=== PATIENT | female | born 1960 | race American Indian/Alaskan Native ===

== ENCOUNTER 2021-12-12 01:06 | Emergency (ER) | payer MEDICARE ==
[2021-12-12] MEDS ORDERED: FUROSEMIDE 40 MG/4 ML INJ IV ONE (02:19)
[2021-12-12] MEDS ORDERED: ALBUTEROL 2.5 MG/3 ML NEBU IH ONE (02:19)
[2021-12-12] MEDS ORDERED: IPRATROPIUM 0.02% NEBU 2.5 ML IH ONE (02:19)
[2021-12-12] MEDS ORDERED: methylPREDNISolone Sod Succinate 125 MG/2 ML INJ IV ONE (02:19)
--- NOTE | 2021-12-12 02:22 | Emergency Department Report ---
ED General Adult HPI - General Chief complaint: Dyspnea/Respdistress Stated complaint: SOB PUI?: No Time Seen by Provider: 12/12/21 01:58 Source: patient, family, EMS ( EMS documentation not available at time of chart dictation ), RN notes reviewed, old records reviewed Mode of arrival: Stretcher Limitations: No Limitations - History of Present Illness Initial comments: The patient was evaluated in the emergency department for symptoms described in the history of present illness. He/she was evaluated in the context of the [facility] COVID-19 pandemic, which necessitated consideration that the patient might be at risk for infection with the virus that causes COVID-19. Institutional protocols and algorithms that pertain to the evaluation of patients at risk for COVID-19 are in a state of rapid change based on information released by regulatory bodies including the CDC and federal and state organizations. These policies and algorithms were followed during the patient's care in the emergency department. Please note that these policies, procedures and recommendations changed on a rapid basis. This is a pleasant and cooperative 61-year-old female, with a history of chronic respiratory failure on home oxygen, typically uses 5 to 6 L, and typically sats 88%, also with a history of paroxysmal A. fib, currently on xarelto, body mass index of 56, report of congestive heart failure, does not know ejection fraction, currently taking torsemide, 20 mg daily, presenting to the department today with a complaint of mild shortness of breath which is painless. The patient is seeking assurance that "she does not have water on the lungs." Patient endorses compliance with her medications. She denies travel, surgery, immobilization. The patient denies DVT and pulmonary embolism risk factors. The patient typically uses a wheelchair or walker at home. She does report that she has a bit of anxiety, and she also reports that she is using her CPAP at home. 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 In the emergency room, she felt markedly improved after albuterol, Atrovent, steroids, and Lasix [facility] [place] [facility] Pulmonology: Dr. Sahni/Dr. Biswas -: Gradual Improves with: medication, rest Worsens with: movement - Related Data Previous Rx's Medication Instructions Recorded Last Taken Type Albuterol Sulfate [Albuterol 0.63% 0.63 mg IH Q4HR PRN #2 ml 12/12/21 Unknown Rx NEBS] Albuterol Sulfate [Proair 90 mcg IH Q4HR PRN #2 aer.pow.ba 12/12/21 Unknown Rx Respiclick] Torsemide [Demadex] 20 mg PO BID #14 tab 12/12/21 Unknown Rx methylPREDNISolone [Medrol 4MG 4 mg PO QDAY #1 pack 12/12/21 Unknown Rx DOSEPAK (21 tabs)] Allergies Allergy/AdvReac Type Severity Reaction Status Date / Time codeine Allergy Shortness Verified 12/12/21 02:42 of Breath ED Review of Systems ROS: Stated complaint: SOB Other details as noted in HPI Constitutional: denies: fever, malaise, weakness Eyes: denies: eye discharge ENT: congestion Respiratory: shortness of breath. denies: cough Cardiovascular: edema. denies: chest pain Gastrointestinal: denies: abdominal pain Musculoskeletal: denies: back pain Neurological: denies: weakness Hematological/Lymphatic: denies: easy bleeding ED Past Medical Hx - Past Medical History Previous Medical History?: Yes Hx Hypertension: Yes Hx CVA: No Hx Congestive Heart Failure: No Hx Diabetes: Yes Hx Deep Vein Thrombosis: No Hx GERD: Yes Hx Arthritis: Yes (Osteoarthritis/BLEs) Hx Seizures: No Hx Psychiatric Treatment: Yes (anxiety) Hx Asthma: Yes Hx COPD: Yes - Surgical History Past Surgical History?: Yes Additional Surgical History: r knee replacement, r carpal tunnel, abdominal hernia - Social History Smoking Status: Current Every Day Smoker Substance Use Type: None - Medications Home Medications: Home Medications Medication Instructions Recorded Confirmed Last Taken Type Albuterol Sulfate [Albuterol 0.63% 0.63 mg IH Q4HR PRN #2 ml 12/12/21 Unknown Rx NEBS] Albuterol Sulfate [Proair 90 mcg IH Q4HR PRN #2 aer.pow.ba 12/12/21 Unknown Rx Respiclick] Torsemide [Demadex] 20 mg PO BID #14 tab 12/12/21 Unknown Rx methylPREDNISolone [Medrol 4MG 4 mg PO QDAY #1 pack 12/12/21 Unknown Rx DOSEPAK (21 tabs)] ED Physical Exam - General Limitations: No Limitations General appearance: alert, in no apparent distress, obese - Head Head exam: Present: atraumatic, normocephalic - Eye Eye exam: Present: normal appearance, EOMI. Absent: nystagmus - ENT ENT exam: Present: normal exam, normal orophraynx, mucous membranes moist, normal external ear exam - Neck Neck exam: Present: normal inspection, full ROM. Absent: tenderness, meningismus - Respiratory Respiratory exam: Present: decreased breath sounds. Absent: respiratory distress, wheezes, rales, rhonchi, stridor - Cardiovascular Cardiovascular Exam: Present: regular rate, normal rhythm, normal heart sounds. Absent: bradycardia, tachycardia, irregular rhythm, systolic murmur, diastolic murmur, rubs, gallop - GI/Abdominal GI/Abdominal exam: Present: soft. Absent: distended, tenderness, guarding, rebound, rigid, pulsatile mass - Extremities Exam Extremities exam: Present: full ROM, pedal edema (2+ edema in the bilateral lower extremity), other (2+ pulses noted in the bilateral upper and lower extremities. There is no palpable cord. negative Homans sign. Muscular joe rtments are soft. The pelvis is stable.). Absent: normal inspection (Chronic venous stasis changes noted in the bilateral lower extremity), calf tenderness - Back Exam Back exam: Present: normal inspection. Absent: tenderness, CVA tenderness (R), CVA tenderness (L), paraspinal tenderness, vertebral tenderness - Neurological Exam Neurological exam: Present: alert, oriented X3, other (There is no facial droop. The tongue is midline. EOMI. 5 out of 5 strength in 4 extremities). Absent: motor sensory deficit - Psychiatric Psychiatric exam: Present: normal affect, normal mood - Skin Skin exam: Present: warm, dry, intact, normal color. Absent: rash ED Course Vital Signs 12/12/21 12/12/21 12/12/21 01:24 03:10 03:52 Temperature 98.8 F Pulse Rate 78 Pulse Rate [ 66 Bilateral] Respiratory 20 Rate Respiratory 18 Rate [Bilateral ] Blood Pressure 140/80 O2 Sat by Pulse 89 95 Oximetry - Reevaluation(s) Reevaluation #1: 12/12/21 04:10 Differential diagnosis, include but not limited to: Congestive heart failure, COPD exacerbation, pneumonia, obesity hypoventilation syndrome, obstructive sleep apnea, pulmonary hypertension Assessment and plan: 61-year-old female who is compliant with xarelto, who denies DVT and pulmonary embolism risk factors, who is low risk by Wells criteria for pulmonary embolism, presenting to the department today with complaint of painless shortness of breath, found to have a mild CHF exacerbation. She feels markedly improved with Lasix, albuterol and Atrovent. She is currently saturating at 90 to 92% on supplemental oxygen, sitting upright, smiling and in good spirits, and in no acute respiratory distress. She is quite adamant that she would like to be discharged. I did offer/recommend admission to the medical service to the patient, and also discussed with family member. We discussed risks, benefits of discharge with close outpatient follow- up, versus hospitalization. The patient does not want to be admitted, and prefers to be discharged. She is awake, alert, oriented, sober of sound mind and exhibits decision-making capacity. I did specifically discuss the risks of an unanticipated respiratory failure and decompensation, which could require intubation or cardiopulmonary resuscitation. I think that this is very unlikely given her clinical improvement here in the emergency room She reports that she is reliable to follow-up, and return if worse. Therefore, through shared decision-making, we will discharge this patient is a mild CHF exacerbation, with instructions to follow-up. Return precautions are reviewed. All questions were answered 12/12/21 04:16 ED Medical Decision Making - Lab Data Result diagrams: 12/12/21 02:32 12/12/21 02:32 Vital Signs 12/12/21 12/12/21 01:24 03:10 Temperature 98.8 F Pulse Rate 78 Pulse Rate [ 66 Bilateral] Respiratory 20 Rate Respiratory 18 Rate [Bilateral ] Blood Pressure 140/80 O2 Sat by Pulse 89 Oximetry Lab Results 12/12/21 12/12/21 12/12/21 Range/Units 02:32 02:32 02:32 WBC 11.8 H (4.5-11.0) K/mm3 RBC 4.23 (3.65-5.03) M/mm3 Hgb 9.9 L (10.1-14.3) gm/dl Hct 32.3 (30.3-42.9) % MCV 76 L (79-97) fl MCH 23 L (28-32) pg MCHC 31 (30-34) % RDW 19.2 H (13.2-15.2) % Plt Count 154 (140-440) K/mm3 Lymph % (Auto) 5.9 L (13.4-35.0) % [place] % (Auto) 4.1 (0.0-7.3) % Eos % (Auto) 0.2 (0.0-4.3) % Baso % (Auto) 0.6 (0.0-1.8) % Lymph # (Auto) 0.7 L (1.2-5.4) K/mm3 [place] # (Auto) 0.5 (0.0-0.8) K/mm3 Eos # (Auto) 0.0 (0.0-0.4) K/mm3 Baso # (Auto) 0.1 (0.0-0.1) K/mm3 Seg Neutrophils % 89.2 H (40.0-70.0) % Seg Neutrophils # 10.5 H (1.8-7.7) K/mm3 PT 21.9 H (12.2-14.9) Sec. INR 1.68 H (0.87-1.13) Sodium 142 (137-145) mmol/L Potassium 3.8 (3.6-5.0) mmol/L Chloride 98.9 (98-107) mmol/L Carbon Dioxide 35 H (22-30) mmol/L Anion Gap 12 mmol/L BUN 21 H (7-17) mg/dL Creatinine 1.0 (0.6-1.2) mg/dL Estimated GFR > 60 ml/min BUN/Creatinine Ratio 21 % Glucose 117 H (65-100) mg/dL Calcium 9.5 (8.4-10.2) mg/dL Magnesium 1.70 (1.7-2.3) mg/dL Total Bilirubin 0.20 (0.1-1.2) mg/dL AST 11 (5-40) units/L ALT 9 (7-56) units/L Alkaline Phosphatase 106 (35-129) units/L Total Creatine Kinase 44 (30-135) units/L Troponin T < 0.010 (0.00-0.029) ng/mL NT-Pro-B Natriuret Pep 548.9 (0-900) pg/mL Total Protein 7.1 (6.3-8.2) g/dL Albumin 3.7 L (3.9-5) g/dL Albumin/Globulin Ratio 1.1 % - EKG Data -: EKG Interpreted by Me - EKG Data 12/12/21 04:09 The EKG is interpreted at 03: 1 2 Sinus rhythm, with a rate of 74 bpm. Left axis deviation, motion artifact, NC interval 1 5 9 ms, PVC. Abnormal EKG. Denies chest pain. Not a STEMI. - Radiology Data Radiology results: pending, report reviewed, image reviewed CHEST 1 VIEW INDICATION / CLINICAL INFORMATION: Dyspnea. COMPARISON: None available. FINDINGS: SUPPORT DEVICES: None. HEART / MEDIASTINUM: Mild cardiomegaly. LUNGS / PLEURA: Increased central vascular prominence and asia ateral interstitial opacities in the mid and lower chest. BONES: No significant osseous abnormality. ADDITIONAL FINDINGS: No significant additional findings. IMPRESSION: 1. Mild decompensation of CHF with features of vascular congestion and interstitial pulmonary edema are suggested. Signer Name: Hitesh Vargas II, MD Signed: 12/12/2021 1:49 AM Workstation Name: [id number] Critical Care Time: Yes Critical care time in (mins) excluding proc time.: 35 Critical care attestation.: If time is entered above; I have spent that time in minutes in the direct care of this critically ill patient, excluding procedure time. ED Disposition Clinical Impression: CHF (congestive heart failure), COPD (chronic obstructive pulmonary disease), Chronic respiratory failure, Body mass index (BMI) of 50-59.9 in adult Disposition: 01 HOME / SELF CARE / HOMELESS Is pt being admited?: No Does the pt Need Aspirin: No Condition: Good Instructions: Chronic Obstructive Pulmonary Disease (ED) Additional Instructions: Increase torsemide to 20 mg twice daily for the next 7 days. Take the Medrol Dosepak as directed, and albuterol/needed as directed. Continue current outpatient home medications. Follow-up with your outpatient primary care doctor, facilities engineer or meter shop superintendent within the next 3 to 5 days. Please return to the emergency room right away with new pain, worsened pain, migration of pain, projectile vomiting, change in mental status, confusion, inability tolerate liquid feeds, new, worsened or different symptoms not present on the initial emergency room evaluation Prescriptions: Albuterol Sulfate [Albuterol 0.63% NEBS] 0.63 mg IH Q4HR PRN #2 ml PRN Reason: Wheezing Torsemide [Demadex] 20 mg PO BID #14 tab methylPREDNISolone [Medrol 4MG DOSEPAK (21 tabs)] 4 mg PO QDAY #1 pack Albuterol Sulfate [Proair Respiclick] 90 mcg IH Q4HR PRN #2 aer.adriana PRN Reason: Wheezing Referrals: GEORGE SAHNI MD [Staff Physician] - 3-5 Days [facility] [Provider Group] - 3-5 Days
[2021-12-12 02:51] LABS: Basophils # (Auto) 0.1 K/mm3 (0.0-0.1); Basophils % (Auto) 0.6 % (0.0-1.8); Eosinophils % (Auto) 0.2 % (0.0-4.3); Hematocrit 32.3 % (30.3-42.9); Hemoglobin 9.9 gm/dl (10.1-14.3); Lymphocytes # (Auto) 0.7 K/mm3 (1.2-5.4); Lymphocytes % (Auto) 5.9 % (13.4-35.0); Mean Corpuscular HGB Conc 31 % (30-34); Mean Corpuscular Volume 76 fl (79-97); Monocytes # (Auto) 0.5 K/mm3 (0.0-0.8); Monocytes % (Auto) 4.1 % (0.0-7.3); Platelet Count 154 K/mm3 (140-440); Red Blood Count 4.23 M/mm3 (3.65-5.03); Red Cell Distribution Width 19.2 % (13.2-15.2)
--- NOTE | 2021-12-12 02:53 | XRay Report ---
CHEST 1 VIEW INDICATION / CLINICAL INFORMATION: Dyspnea. COMPARISON: None available. FINDINGS: SUPPORT DEVICES: None. HEART / MEDIASTINUM: Mild cardiomegaly. LUNGS / PLEURA: Increased central vascular prominence and bilateral interstitial opacities in the mid and lower chest. BONES: No significant osseous abnormality. ADDITIONAL FINDINGS: No significant additional findings. IMPRESSION: 1. Mild decompensation of CHF with features of vascular congestion and interstitial pulmonary edema a re suggested. Signer Name: Hitesh Vargas II, MD Signed: 12/12/2021 2:49 AM Workstation Name: [id number]
[2021-12-12 03:00] LABS: INR 1.68 (0.87-1.13)
[2021-12-12 03:12] LABS: Alanine Aminotransferase 9 units/L (7-56); Albumin 3.7 g/dL (3.9-5); BUN/Creatinine Ratio 21; Blood Urea Nitrogen 21 mg/dL (7-17); Calcium 9.5 mg/dL (8.4-10.2); Hemolysis Index 0
[2021-12-12 05:43] VITALS: BP 142/58
--- NOTE | 2021-12-12 14:11 | Electrocardiograph Report ---
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
== END 2021-12-12 05:45 | disposition home or self-care (01) ==
LOC: ED 01:06
DX: I11.0 Hypertensive heart disease with heart failure (principal); I50.9 Heart failure, unspecified; J44.1 Chronic obstructive pulmonary disease with (acute) exacerbation; J96.10 Chronic respiratory failure, unspecified whether with hypoxia or hypercapnia; Z68.43 Body mass index [BMI] 50.0-59.9, adult; E11.9 Type 2 diabetes mellitus without complications; K21.9 Gastro-esophageal reflux disease without esophagitis; M19.90 Unspecified osteoarthritis, unspecified site; F41.9 Anxiety disorder, unspecified; F17.200 Nicotine dependence, unspecified, uncomplicated; Z91.09 Other allergy status, other than to drugs and biological substances; Z79.899 Other long term (current) drug therapy
CPT/HCPCS: 36415; 71045; 80053; 82550; 83735; 83880; 84484; 85025; 85610; 93005; 94644; 96374; 96375; 99291; J1940; J2930; 99284